=== PATIENT | female | born 1960 | race Caucasian/White ===

== ENCOUNTER 2021-11-23 14:48 | Outpatient (CLI) | payer BC, SELFPAY ==
--- NOTE | 2021-11-23 15:00 | MM_ITS ---
Patient: CHANA THOMAS Facility:?[facility] Patient ID:?[id number] Site Patient ID:?[id number] Site :?[id number] Study:?XRay-Breast Bilateral -11/23/2021 9:43:36 AM Ordering Physician:OLIVIA PRESLEY Final Report: BILATERAL MAMMOGRAM WITH COMPUTER-AIDED DETECTION TECHNIQUE: CC, MLO and implant displaced views were obtained. These mammographic images have been obtained using full-field digital technique. These mammographic images were interpreted with the benefit of computer-aided detection. COMPARISON FILM: [employer]. FINDINGS: There are scattered areas of fibroglandular density IMPRESSION: There is no radiographic evidence for malignancy. ASSESSMENT: BI-RADS Category 2: Benign RECOMMENDATION: Routine screening mammogram in 1 year. A lay language report of this examination will be provided to the patient. Valeriano Torres M.D. Diagnostic Radiologist [email or web address] / be/Dictated by: Valeriano Torres MD @ 11/26/2021 9:55:00 AM Signed by:?Valeriano Torres MD @11/27/2021 8:35:05 AM (Electronic Signature)
== END 2021-11-23 14:49 | disposition home or self-care (01) ==
LOC: MAMMO 14:49
PROVIDERS: Visit Provider Emergency Medicine
DX: Z12.31 Encounter for screening mammogram for malignant neoplasm of breast (principal); R92.2 Inconclusive mammogram
CPT/HCPCS: 77063; 77067

== ENCOUNTER 2022-02-03 11:35 | Outpatient (CLI) | payer BC, SELFPAY ==
[2022-02-03 13:32] LABS: Cholesterol* 193 mg/dL (90-199)
[2022-02-03 13:33] LABS: HDL Cholesterol* 73 mg/dL (>=50); LDL Cholesterol Calculated 65 mg/dL (<100); Triglycerides* 277 mg/dL (40-149)
[2022-02-03 13:53] LABS: TSH With Reflex to FT4* < 0.015 uIU/mL (0.270-4.200)
[2022-02-03 14:58] LABS: Free T4 Free Thyroxine* 1.63 ng/dL (0.70-1.85)
== END 2022-02-03 11:36 | disposition home or self-care (01) ==
PROVIDERS: PCP Emergency Medicine; Visit Provider Emergency Medicine
DX: E78.5 Hyperlipidemia, unspecified (principal); E05.90 Thyrotoxicosis, unspecified without thyrotoxic crisis or storm
CPT/HCPCS: 80061; 84439; 84443

== ENCOUNTER 2022-04-21 16:37 | Outpatient (CLI) | payer BC, SELFPAY ==
[2022-04-21 14:14] LABS: TSH With Reflex to FT4* 0.661 uIU/mL (0.270-4.200)
[2022-04-21 14:17] LABS: Chloride* 107 mmol/L (96-114)
[2022-04-21 14:18] LABS: Potassium* 4.3 mmol/L (3.6-5.1); Sodium* 139 mmol/L (135-149)
[2022-04-21 14:20] LABS: Creatinine* 0.9 mg/dL (0.5-1.5); Estimated Glomerular Filt Rate 73 ml/min
[2022-04-21 14:21] LABS: Blood Urea Nitrogen* 13 mg/dL (7-30); Calcium* 9.8 mg/dL (8.4-10.6); Carbon Dioxide* 25 mmol/L (20-32); Glucose* 83 mg/dL (60-115)
== END 2022-04-21 16:38 | disposition home or self-care (01) ==
PROVIDERS: PCP Family Medicine; Visit Provider Family Medicine
DX: E03.9 Hypothyroidism, unspecified (principal); I10 Essential (primary) hypertension
CPT/HCPCS: 80048; 84443

== ENCOUNTER 2023-05-24 09:45 | Outpatient (CLI) | payer BC, SELFPAY | END 2023-05-24 09:46 | disposition home or self-care (01) | LOC: NFLDREF 05-25 07:39 | PROVIDERS: PCP Family Medicine; Referring Provider Family Medicine; Visit Provider Family Medicine | DX: I10 Essential (primary) hypertension (principal); E03.9 Hypothyroidism, unspecified; E78.5 Hyperlipidemia, unspecified; Z72.0 Tobacco use | CPT/HCPCS: 80053; 80061; 84439; 84443 ==

== ENCOUNTER 2023-09-09 08:27 | Outpatient (CLI) | payer BC, SELFPAY | END 2023-09-09 08:28 | disposition home or self-care (01) | LOC: NFLDREF 09-12 07:26 | PROVIDERS: PCP Family Medicine; Referring Provider Family Medicine; Visit Provider Family Medicine | DX: R79.89 Other specified abnormal findings of blood chemistry (principal); E03.9 Hypothyroidism, unspecified; E78.5 Hyperlipidemia, unspecified | CPT/HCPCS: 80076; 84443 ==

== ENCOUNTER 2024-06-11 10:20 | Outpatient (CLI) | payer BC, SELFPAY ==
[2024-06-13 17:38] LABS: HPV Source Cervix; HPV, High Risk by TMA Not Detected
== END 2024-06-11 10:21 | disposition home or self-care (01) ==
PROVIDERS: PCP Family Medicine; Visit Provider Obstetrics & Gynecology
DX: Z12.4 Encounter for screening for malignant neoplasm of cervix (principal); Z11.51 Encounter for screening for human papillomavirus (HPV)
CPT/HCPCS: 87624; 87625; 88141; 88142

== ENCOUNTER 2024-06-18 10:28 | Outpatient (CLI) | payer BC, SELFPAY | END 2024-06-18 10:29 | disposition home or self-care (01) | LOC: LKVREF 10:29 | PROVIDERS: PCP Family Medicine; Visit Provider Family Medicine | DX: E03.9 Hypothyroidism, unspecified (principal); I10 Essential (primary) hypertension; E78.5 Hyperlipidemia, unspecified; R79.89 Other specified abnormal findings of blood chemistry | CPT/HCPCS: 80053; 80061; 84443 ==

== ENCOUNTER 2024-07-30 13:28 | Outpatient (CLI) | payer BC, SELFPAY ==
--- NOTE | 2024-07-30 13:40 | CRLHL7_ITS ---
For Patients: As a result of the Cures Act, medical imaging exams and procedure reports are released immediately into your electronic medical record. You may view this report before your referring provider. If you have questions, please contact your health care provider. BILATERAL SCREENING MAMMOGRAM WITH COMPUTER-AIDED DETECTION AND TOMOSYNTHESIS TECHNIQUE: CC, MLO and implant-displaced views were obtained. These mammographic images have been obtained using full-field digital technique. These mammographic images were interpreted with the benefit of computer-aided detection. Breast tomosynthesis was used in this interpretation. COMPARISON FILM: 11/23/21, 08/17/07 FINDINGS: There are scattered areas of fibroglandular density. IMPRESSION: There is no radiographic evidence for malignancy. ASSESSMENT: BI-RADS Category 2: Benign RECOMMENDATION: Routine screening mammogram in 1 year. A lay language report of this examination will be provided to the patient. VALERIANO VALENZUELA M.D. Diagnostic Radiologist [email or web address] Transcribed: 08/06/2024, 5:[address]/Dictated by: Valeriano Valenzuela MD @ 08/06/2024 10:46:[address]/Dictated by: Valeriano Valenzuela MD @ 08/06/2024 10:46:00 AM (Electronically Signed)
== END 2024-07-30 13:29 | disposition home or self-care (01) ==
LOC: MAMMO 13:28
PROVIDERS: PCP Family Medicine; Visit Provider Family Medicine
DX: Z12.31 Encounter for screening mammogram for malignant neoplasm of breast (principal)
CPT/HCPCS: 77063; 77067

== ENCOUNTER 2024-09-17 12:59 | Outpatient (CLI) | payer BC, SELFPAY ==
--- NOTE | 2024-09-17 13:00 | CRLHL7_ITS ---
For Patients: As a result of the Century Cures Act, medical imaging exams and procedure reports are released immediately into your electronic medical record. You may view this report before your referring provider. If you have questions, please contact your health care provider. INDICATION: Lung cancer screening. History of smoking. TECHNIQUE: Low-dose lung cancer screening non-contrast CT chest. Dose reduction techniques were used. COMPARISON: None. FINDINGS: NODULES: Large masslike area within the right lower lobe measuring up to approximately 7 cm. Additional ill-defined ground-glass densities within the anterior aspect of the right upper lobe. LUNGS AND PLEURA: Biapical pleural-parenchymal scarring. Centrilobular and paraseptal emphysema. MEDIASTINUM: Soft tissue masses within the right superior mediastinum measuring up to approximately 2.9 cm. Right paratracheal adenopathy with a lymph node measuring 1.7 cm. CORONARY ARTERY CALCIFICATION: Present. LIMITED UPPER ABDOMEN: Atherosclerotic changes in the aorta. MUSCULOSKELETAL: Chronic left 7th and 8th rib fractures are present with incomplete healing. Bilateral breast implants. IMPRESSION: Large masslike area within the right lower lobe. Soft tissue masses within the right side of the upper mediastinum, measuring up to 2.9 cm, presumably representing bulky lymph nodes. LUNG-RADS CATEGORY: 4X RADIOLOGIST RECOMMENDATION: CT chest with intravenous contrast for further evaluation. Please note that all CT scans at this facility use dose modulation, iterative reconstruction, and/or weight-based dosing when appropriate to reduce radiation dose to as low as reasonably achievable. Dictated by Valeriano Torres MD @ 09/18/2024 11:03:36 AM (Electronically Signed)
== END 2024-09-17 13:00 | disposition home or self-care (01) ==
PROVIDERS: PCP Family Medicine; Visit Provider Family Medicine
DX: Z12.2 Encounter for screening for malignant neoplasm of respiratory organs (principal); R91.8 Other nonspecific abnormal finding of lung field; Z87.891 Personal history of nicotine dependence; Z72.0 Tobacco use
CPT/HCPCS: 71271

== ENCOUNTER 2024-09-25 15:52 | Outpatient (CLI) | payer BC, SELFPAY ==
--- NOTE | 2024-09-25 16:00 | CRLHL7_ITS ---
For Patients: As a result of the Century Cures Act, medical imaging exams and procedure reports are released immediately into your electronic medical record. You may view this report before your referring provider. If you have questions, please contact your health care provider. Indication: ABNORMAL LUNG SCREEN Technique: Postcontrast CT chest Please note that all CT scans at this facility use dose modulation, iterative reconstruction, and/or weight-based dosing when appropriate to reduce radiation dose to as low as reasonably achievable. Comparison: 09/17/2024 Findings: Right upper mediastinal soft tissue mass is present measuring 5.9 x 4.0 cm. COPD/emphysema. Ill-defined ground-glass nodules in the right upper lobe measure up to 1.5 cm. Large masslike areas present within the right lower lobe with lobular contours which measures up to approximately 7 x 5 cm. The airways appear clear. This does not appear to be related to postobstructive atelectasis. No fracture. Impression: Large lobular masslike area within the right lower lobe measuring up to 7 cm. Lobular right upper mediastinal mass measures up to approximately 5.9 cm. Whole-body CT PET recommended for further evaluation along with pulmonary consultation for consideration of bronchoscopic biopsy. Please note that all CT scans at this facility use dose modulation, iterative reconstruction, and/or weight-based dosing when appropriate to reduce radiation dose to as low as reasonably achievable. Dictated by Valeriano Torres MD @ 09/26/2024 11:37:26 AM (Electronically Signed)
[2024-09-25 16:41] LABS: Creatinine* 0.8 mg/dL (0.5-1.5); Estimated Glomerular Filt Rate 83 ml/min
== END 2024-09-25 15:53 | disposition home or self-care (01) ==
LOC: CT 15:52
PROVIDERS: PCP Family Medicine; Visit Provider Family Medicine
DX: R91.8 Other nonspecific abnormal finding of lung field (principal)
CPT/HCPCS: 36415; 71260; 82565; Q9967

== ENCOUNTER 2024-10-08 09:22 | Outpatient (CLI) | payer BC, SELFPAY | END 2024-10-08 09:23 | disposition home or self-care (01) | LOC: NFLDREF 10-12 07:01 | PROVIDERS: PCP Family Medicine; Referring Provider Family Medicine; Visit Provider Family Medicine | DX: E78.5 Hyperlipidemia, unspecified (principal) | CPT/HCPCS: 80061; 80076 ==